=== PATIENT | female | born 1995 | race Hispanic/Latino ===

== ENCOUNTER 2020-05-31 15:08 | Emergency (ER) | payer OTHER ==
[~2020-05-31] VITALS: Ht 160 cm; Wt 68.0 kg
[2020-05-31] MEDS ORDERED: SODIUM CHLORIDE 0.9% 1000ML 1,000 ML IV SCH ×2 (15:45→18:15)
[2020-05-31 15:47] LABS: BASOPHILS % 0.3 % (0.0-1.0); EOSINOPHILS # (AUTO) 0.2 (0.0-0.4); EOSINOPHILS % 2.7 % (0.0-6.0); HEMATOCRIT 33.6 % (34.2-44.1); LYMPHOCYTES # (AUTO) 2.1 (1.0-3.2); LYMPHOCYTES % 26.4 % (18.0-39.1); MEAN CORPUSCULAR HEMOGLOBIN 28.9 pg (28-32); MEAN CORPUSCULAR HGB CONC 32.7 g/dL (31-35); MEAN CORPUSCULAR VOLUME 88.4 fL (81-99); MONOCYTES # (AUTO) 0.4 (0.2-0.8); MONOCYTES % 5.6 % (4.4-11.3); NEUTROPHILS # (AUTO) 5.1 (2.1-6.9); NEUTROPHILS % 64.6 % (38.7-80.0); PLATELET COUNT 210 x10e3/uL (140-360); RED CELL DISTRIBUTION WIDTH 12.8 % (11.7-14.4)
[2020-05-31] MEDS ORDERED: SODIUM CHLORIDE 0.9% 1000ML 1,000 ML ONE (15:49)
[2020-05-31 16:09] LABS: ALANINE AMINOTRANSFERASE 14 IU/L (0-55); ALBUMIN 3.9 g/dL (3.5-5.0); ALBUMIN/GLOBULIN RATIO 1.1 (0.8-2.0); ALKALINE PHOSPHATASE 59 IU/L (40-150); ANION GAP 12.6 mmol/L (8-16); BLOOD UREA NITROGEN 12 mg/dL (7-26); BUN/CREATININE RATIO 17 (6-25); CALCIUM 8.8 mg/dL (8.4-10.2); CARBON DIOXIDE 25 mmol/L (22-29); CHLORIDE 105 mmol/L (98-107); CREATINE KINASE 45 IU/L (29-168); CREATININE, SERUM 0.71 mg/dL (0.57-1.11); EST GLOMERULAR FILTRATION RATE > 60 ML/MIN (60-); GLUCOSE 116 mg/dL (74-118); POTASSIUM 3.6 mmol/L (3.5-5.1); SODIUM 139 mmol/L (136-145)
[2020-05-31 16:56] LABS: BILIRUBIN,URINE NEGATIVE (NEGATIVE); CLARITY,URINE SL CLOUDY (CLEAR); COLOR,URINE STRAW (YELLOW); KETONES,URINE NEGATIVE (NEGATIVE); LEUKOCYTE ESTERASE ,URINE NEGATIVE (NEGATIVE); NITRITE,URINE NEGATIVE (NEGATIVE); PROTEIN,URINE DIPSTICK NEGATIVE (NEGATIVE); URINE UROBILINOGEN 0.2 mg/dL (0.2 - 1)
[2020-05-31 17:11] LABS: BACTERIA,URINE MODERATE /HPF; EPITHELIAL CELLS,URINE FEW /LPF; RBC,URINE 21-50 /HPF (0-5)
--- NOTE | 2020-05-31 17:17 | Emergency Department Note ---
History of Present Illnes History of Present Illness Chief Complaint: Seizure History of Present Illness This is a 25 year old female arrives the ED after having a generalized tonic clonic seizure at home just prior to arrival . Chief Complaint Comment Patient in from home via EMS with reports of a seizure that happened just prior to arrival that was witnessed by her family. Per EMS, family states that the seizure lasted about 2 minutes in total and stated that the patient reported weakness, sweating and a numb feeling all over her body just prior to the event. Patient reportedly slumped off of the chair she was si tting in to the floor and began to seize. After the event the patient had one episode of vomiting. Patient is alert and oriented in triage but with amnesia to the event. Patient denies history of seizures but states her brother has seizures but is also HIV positive. No complaints of pain voiced at this time. Denies illegal substance use or abuse. 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 Any updates have been documented here. (YESY BAILEY DO) Past Medical History Recent Fever: No Clinical Suspicion of Infectio: No New/Unexplained Change in Ment: No Past Medical History: None Past Surgical History: None (YESY BAILEY DO) Physical Exam Related Data Allergies: Coded Allergies: No Known Allergies (Unverified , 05/31/20) Triage Vital Signs Vital Signs Date Time Temp Pulse Resp B/P (MAP) Pulse Ox O2 Delivery O2 Flow Rate FiO2 05/31/20 15:18 98.2 78 16 80/38 100 Room Air (YESY BAILEY DO) Physical Exam CONSTITUTIONAL HENT EYES NECK PULMONARY CARDIOVASCULAR GASTROINTESTINAL GENITOURINARY SKIN MUSCULOSKELETAL NEUROLOGICAL PSYCHOLOGICAL (YESY BAILEY DO) Results Laboratory Result Diagram: 05/31/20 1535 05/31/20 1535 Laboratory Laboratory Tests Test 05/31/20 16:21 05/31/20 15:35 Urine Color Straw (YELLOW) Urine Clarity Sl cloudy (CLEAR) Urine pH 6.5 (5 - 7) Urine Specific [place] 1.025 (1.010-1.025) Urine Protein Negative (NEGATIVE) Urine Glucose (UA) Negative (NEGATIVE) Urine Ketones Negative (NEGATIVE) Urine Blood Moderate (NEGATIVE) Urine Nitrite Negative (NEGATIVE) Urine Bilirubin Negative (NEGATIVE) Urine Urobilinogen 0.2 mg/dL (0.2 - 1) Urine Leukocyte Esterase Negative (NEGATIVE) Urine RBC 21-50 /HPF (0-5) Urine WBC None /HPF (0-5) Urine Epithelial Cells Few /LPF (NONE) Urine Bacteria Moderate /HPF (NONE) White Blood Count 7.92 x10e3/uL (4.8-10.8) Red Blood Count 3.80 x10e6/uL (3.6-5.1) Hemoglobin 11.0 g/dL (12.0-16.0) Hematocrit 33.6 % (34.2-44.1) Mean Corpuscular Volume 88.4 fL (81-99) Mean Corpuscular Hemoglobin 28.9 pg (28-32) Mean Corpuscular Hemoglobin Concent 32.7 g/dL (31-35) Red Cell Distribution Width 12.8 % (11.7-14.4) Platelet Count 210 x10e3/uL (140-360) Neutrophils (%) (Auto) 64.6 % (38.7-80.0) Lymphocytes (%) (Auto) 26.4 % (18.0-39.1) Monocytes (%) (Auto) 5.6 % (4.4-11.3) Eosinophils (%) (Auto) 2.7 % (0.0-6.0) Basophils (%) (Auto) 0.3 % (0.0-1.0) Neutrophils # (Auto) 5.1 (2.1-6.9) Lymphocytes # (Auto) 2.1 (1.0-3.2) Monocytes # (Auto) 0.4 (0.2-0.8) Eosinophils # (Auto) 0.2 (0.0-0.4) Basophils # (Auto) 0.0 (0.0-0.1) Absolute Immature Granulocyte (auto 0.03 x10e3/uL (0-0.1) Sodium Level 139 mmol/L (136-145) Potassium Level 3.6 mmol/L (3.5-5.1) Chloride Level 105 mmol/L (98-107) Carbon Dioxide Level 25 mmol/L (22-29) Anion Gap 12.6 mmol/L (8-16) Blood Urea Nitrogen 12 mg/dL (7-26) Creatinine 0.71 mg/dL (0.57-1.11) Estimat Glomerular Filtration Rate > 60 ML/MIN (60-) BUN/Creatinine Ratio 17 (6-25) Glucose Level 116 mg/dL (74-118) Calcium Level 8.8 mg/dL (8.4-10.2) Total Bilirubin 0.3 mg/dL (0.2-1.2) Aspartate Amino Transf (AST/SGOT) 18 IU/L (5-34) Alanine Aminotransferase (ALT/SGPT) 14 IU/L (0-55) Alkaline Phosphatase 59 IU/L (40-150) Creatine Kinase 45 IU/L (29-168) Creatine Kinase MB 0.30 ng/mL (0-5.0) Troponin I 0.004 ng/mL (0-0.300) Total Protein 7.6 g/dL (6.5-8.1) Albumin 3.9 g/dL (3.5-5.0) Globulin 3.7 g/dL (2.3-3.5) Albumin/Globulin Ratio 1.1 (0.8-2.0) (YESY BAILEY, DO) Assessment & Plan Medical Decision Making MDM 7:45Pm patient wishes to leave and follow up outpatient. I discusses risks/benefits and patient understands the risks of going home. Discussed that we recommend she stay and still wishes to go home. On last examination patient stable for discharge. Referral placed for Neurology. (VERO RAMIREZ MD) Assessment & Plan Final Impression: (1) New onset seizure (VERO RAMIREZ MD) Depart Disposition: HOME, SELF-CARE Last Vital Signs Date Time Temp Pulse Resp B/P (MAP) Pulse Ox O2 Delivery O2 Flow Rate FiO2 05/31/20 15:18 98.2 78 16 80/38 100 Room Air (YESY BAILEY, DO) Medications in the ED Sodium Chloride 1,000 ml @ STK-MED ONCE .ROUTE ; Start 05/31/20 at 15:49; Stop 05/31/20 at 15:42; Status DC Sodium Chloride 1,000 ml @ 0 mls/hr Q0M IV Last administered on 05/31/20at 15:50; Admin Dose 1,000 MLS/HR; Start 05/31/20 at 15:45; Stop 05/31/20 at 18:00 (YESY BAILEY DO) YESY BAILEY DO May 31, 2020 17:17 VERO RAMIREZ MD May 31, 2020 19:53
--- NOTE | 2020-05-31 17:52 | Diagnostic Imaging Report ---
Examination: CT BRAIN WO History:^Y ^new seizure ^20200531 ^4436 Comparison studies:None Technique: Axial images were obtained from the skull base to the vertex. Coronal and sagittal images reconstructed from the axial data. Dose modulation, iterative reconstruction, and/or weight based adjustment of the mA/kV was utilized to reduce the radiation dose to as low as reasonably achievable. Intravenous contrast: None Findings: Scalp: No abnormalities. Bones: No fractures, blastic or lytic lesions. Brain sulci: Appropriate for age. Ventricles: Normal in size and configuration. No hydrocephalus. Extra-axial space: No abnormalities. Parenchyma: No abnormal densities. No masses, hemorrhage, or acute or chronic cortical based vascular insults.. Sellar/suprasellar region: No abnormalities. Craniocervical junction: Patent foramen magnum. No Chiari one malformation. Impression: No intracranial abnormalities. Signed by: Dr. Olena Rich M.D. on 05/31/2020 5:49 PM
[2020-05-31] MEDS ORDERED: ACETAMINOPHEN 325 MG TAB PO PRN (20:00)
[2020-05-31] MEDS ORDERED: LORAZEPAM INJ 2 MG/ML VIAL IV PRN (20:00)
[2020-05-31] MEDS ORDERED: ONDANSETRON HCL INJ 2MG/ML 2ML 2 MG/ML VIAL IV PRN (20:00)
[2020-05-31] MEDS ORDERED: HYDRALAZINE HCL 20 MG/ML VIAL IV PRN (20:00)
[2020-05-31 20:04] LABS: AMPHETAMINES SCREEN,URINE NEGATIVE (NEGATIVE); BENZODIAZEPINES SCREEN,URINE NEGATIVE (NEGATIVE); PHENCYCLIDINE SCREEN,URINE NEGATIVE (NEGATIVE)
--- NOTE | 2020-05-31 20:10 | NUR ---
PT REQUESTED TO LEAVE AMA. DR FERREIRA SPOKE WITH PT EXPLAINING BENEFITS OF STAYING AND THE RISKS OF LEAVING. SHE STILL DECEIDED TO LEAVE.
[2020-06-01] MEDS ORDERED: FAMOTIDINE 20 MG TAB PO SCH (07:30)
--- NOTE | 2020-06-01 09:49 | Discharge Summary ---
ADMISSION DIAGNOSIS: Seizures. DISCHARGE DIAGNOSIS: Seizures. HISTORY: None. HOSPITAL COURSE: According to the ER records, the patient is a 25-year-old female that admitted after having a generalized tonic-clonic seizure at home just prior to arrival. According to EMS, the seizure was seen by family and lasted about 2 minutes. They said the patient reported weakness, sweating and a numb feeling all over her body just prior to the event. Then, patient slumped over in the chair and began to seize after the episode of the patient had one episode of vomiting. In the ER, she was alert and oriented, but had amnesia. The patient denies seizures, but states her brother has seizures, but he is HIV positive. The patient denies illicit drug use in the ER. CT of the brain showed no intracranial abnormalities. Toxicology; urine drug screen was negative. WBC within normal limits. Electrolytes within normal limits. Per ER record, the patient wanted to leave AMA prior to being seen by the attending service, Dr. Dwyer spoke with the patient explaining the benefits of staying and the risks of leaving, but the patient still decided to leave against medical advice. The time of discharge vital signs, stable. The patient afebrile. Dictated by Brittany Fernandes NP MD SUHAIL Villegas/[place] /[id number]
--- OUTSIDE RECORDS SUMMARY | 2020-06-02 19:14 | XMS REPORT | Continuity of Care Document ---
Author Author [facility] t Organization [facility] Address [address] [place] [address] Dr. 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 Allergies, Adverse Reactions, Alerts This patient has no known allergies or adverse reactions. Medications This patient has no known medications. Procedures This patient has no known procedures. Results Test Description Test Time Test Comments Results Result Comments Source CT BRAIN WO 2020-05-31 17:46:00 [facility] : 1995 Sex: F [facility] [address] [place], [place] [address] Patient Name: ANNA ARGUELLO MR #: [id number] : 1995 Age/Sex: 25/F Req #: [id number] [facility] Physician: Ordered by: YESY BAILEY DO Report #: [id number] Location: ER Room/Bed: Procedure: [id number] CT/CT BRAIN WO Exam Date: 05/31/20 Exam Time: 1654 REPORT STATUS: Signed Examination: CT BRAIN WO History: Y new seizure [id number] Comparison studies:None Technique: Axial images were obtained from the skull base to the vertex. Coronal and sagittal images reconstructed from the axial data. Dose modulation, iterative reconstruction, and/or weight based adjustment of the mA/kV was utilized to reduce the radiation dose to as low as reasonably achievable. Intravenous contrast: None Findings: Scalp: No abnormalities. Bones: No fractures, blastic or lytic lesions. Brain sulci: Appropriate for age. Ventricles: Normal in size and configuration. No hydrocephalus. Extra-axial space: No abnormalities. Parenchyma: No abnormal densities. No masses, hemorrhage, or acute or chronic cortical based vascular insults.. Sellar/suprasellar region: No abnormalities. Craniocervical junction: Patent foramen magnum. No Chiari one malformation. Impression: No intracranial abnormalities. Signed by: Dr. Olena Rich M.D. on 05/31/2020 5:49 PM Dictated By: OLENA BARNES MD 48 Transcribed By: JUAN PABLO on 05/31/201748 COPY TO: YESY BAILEY DO
== END 2020-05-31 20:31 | disposition home or self-care (01) ==
LOC: EDBD 15:08 → ER 16:18 → ERHOLD 18:09 → UNDOADMOB 18:09 → ERHOLD 20:31
DX: R56.9 Unspecified convulsions (principal)
CPT/HCPCS: 36415; 70450; 80053; 80307; 81001; 82550; 82553; 84484; 85025; 93005; 99284; J7030

== ENCOUNTER 2025-05-25 21:49 | Emergency (ER) | payer SELFPAY ==
[~2025-05-25] VITALS: Ht 160 cm; Wt 68.9 kg
[2025-05-25 21:53] VITALS: PULSE 90; RESP 16; TEMP 98.3
[2025-05-25 22:53] LABS: LEUKOCYTE ESTERASE ,URINE TRACE (NEGATIVE); PROTEIN,URINE DIPSTICK TRACE (NEGATIVE); URINE UROBILINOGEN 0.2 mg/dL (0.2 - 1)
[2025-05-25 23:01] LABS: EPITHELIAL CELLS,URINE MODERATE /LPF
[2025-05-25] MEDS ORDERED: CEPHALEXIN500 MG PO (23:02)
[2025-05-25 23:08] VITALS: BP 116/82; PULSE 88; RESP 17; TEMP 98.4; O2SAT 97
== END 2025-05-25 23:11 | disposition home or self-care (01) ==
LOC: ER 21:57
DX: O20.0 Threatened abortion (principal); O23.41 Unspecified infection of urinary tract in pregnancy, first trimester; N39.0 Urinary tract infection, site not specified; G40.909 Epilepsy, unspecified, not intractable, without status epilepticus
CPT/HCPCS: 81001; 81025; 99283